=== PATIENT | male | born 1950 | race Caucasian/White ===

== ENCOUNTER 2017-04-12 06:57 | Day surgery (SDC) | payer MEDICARE, OTHER ==
[~2017-04-12 06:57] MED LIST: CIPROFLOXACIN HCL 0.0015 GM, PHENYLEPHRINE HCL 0.0125 GM, KETOROLAC TROMETHAMINE 0.0006... MC ONE
[2017-04-12] MEDS ORDERED: DICLOFENAC SODIUM 2.5 ML DROPS OPTH ONE (14:35)
[2017-04-12] MEDS ORDERED: NEOMYCIN/POLY./DEXAM OPTH OINT OPTH ONE (14:35)
[2017-04-12] MEDS ORDERED: MIDAZOLAM HCL 2MG/2ML VIAL IV ONE (14:35)
[2017-04-12] MEDS ORDERED: PREDNISOLONE ACETATE 1% OPTH 10ML BOTTLE OPTH ONE (14:35)
[2017-04-12] MEDS ORDERED: LIDOCAINE 2% MDV (20MG/ML) 20ML VIAL IV ONE ×2 (14:35)
[2017-04-12] MEDS ORDERED: PROPOFOL 10 MG/ML VIAL IV ONE (14:35)
[2017-04-12] MEDS ORDERED: TOBRAMYCIN 0.3% OPTH DROP 5 ML BTL OPTH ONE (14:35)
[2017-04-12] MEDS ORDERED: EPINEPHRINE 1 MG/ML AMPUL SQ ONE (14:35)
[2017-04-12] MEDS ORDERED: TETRACAINE HCL 0.5% 15 ML OPTH BTL OPTH ONE (14:35)
--- NOTE | 2017-04-13 10:08 | OP NOTE CHAMES ---
DATE OF PROCEDURE: 04/12/17 PREOPERATIVE DIAGNOSIS: Nuclear sclerotic cataract, left eye. POSTOPERATIVE DIAGNOSIS: Nuclear sclerotic cataract, left eye. OPERATION: Phacoemulsification of cataractous lens with implantation of intraocular lens. LENS IMPLANT USED: Model PCB00 + 22.5 diopters. COMPLICATIONS: None. PROCEDURE IN DETAIL: Following a retrobulbar and facial block, the patient was prepped and draped in the usual fashion for eye surgery. A lid speculum was placed in the left eye after which a 2.4 mm tunnel wound was placed at the temporal limbus and dissected into clear cornea. A paracentesis was placed at 2 oclock hours to the left and right of the initial incision and the chamber deepened with Viscoelastic. The keratome was then used to enter the anterior chamber after which the continuous circular capsulorrhexis was accomplished without difficulty using a bent needle and a Utrata forceps. Hydrodissection and hydrodelineation of the lens was performed after which the nucleus of the lens was removed using the Phaco handpiece in the [id number] technique. The residual cortical material was irrigated and aspirated from the eye after which the bag and chamber were re-examined. The bag was re-inflated with Viscoelastic and the intraocular lens injected into the capsular bag where it centered well. The Viscoelastic was then copiously irrigated and aspirated from the eye after which the temporal tunnel wound and paracentesis were hydrated and the wounds were examined. They were noted to be watertight. The lid speculum was removed from the eye and the eye patched and shielded. The patient was transferred to the recovery room in satisfactory condition and given an appointment to be reexamined in the clinic later today or as directed by Dr. Lovett. Moris Lovett M.D. Date & Time JOB NUMBER: [id number] MTDD
== END 2017-04-12 09:30 | disposition home or self-care (01) ==
LOC: SUR 06:57
PROVIDERS: ATTEND Ophthalmology
DX: H25.12 Age-related nuclear cataract, left eye (principal); E11.9 Type 2 diabetes mellitus without complications; Z79.84 Long term (current) use of oral hypoglycemic drugs; E78.00 Pure hypercholesterolemia, unspecified; I10 Essential (primary) hypertension
CPT/HCPCS: 66984; 00142; 36416; 82948; J0278; J0171

== ENCOUNTER 2017-05-14 07:21 | Day surgery (SDC) | payer MEDICARE, OTHER ==
[2017-05-14] MEDS ORDERED: LIDOCAINE 2% MDV (20MG/ML) 20ML VIAL IV ONE (14:00)
[2017-05-14] MEDS ORDERED: PROPOFOL 10 MG/ML VIAL IV ONE (14:00)
[2017-05-14] MEDS ORDERED: MIDAZOLAM HCL 2MG/2ML VIAL IV ONE (14:00)
--- NOTE | 2017-05-15 15:10 | Operative Note ---
DATE OF SURGERY: 05/14/2017 Surgeon: Jose M Clarke DO PREOPERATIVE DIAGNOSIS: History of colorectal cancer. POSTOPERATIVE DIAGNOSIS: History of colorectal cancer. OPERATION: Colonoscopy with polypectomy. Indication: The patient is a 58-year-old male who had a resection back in 2011. He comes in for followup colonoscopy. Risks, benefits, and alternatives were discussed. Risks include bleeding, infection, missed lesions. He understood this fully. Thereafter, consent signed, questions answered. PROCEDURE: The patient was taken to the endoscopy suite and placed in a supine position. Rotated into left lateral position. Propofol anesthesia was titrated to effect. At this time, digital rectal exam was done and showed no internal masses. At this time, a well-lubricated PCF 180-AL colonoscope was inserted into the patient's rectum and advanced to the level of the anastomosis on his left side. This was advanced through the anastomosis up the descending, along the transverse, down the ascending colon to the cecum. Once the cecum was reached, it was identified by the appendiceal orifice and the ileocecal valve. Upon withdrawal, there was a small polypoid lesion basically at the level of the hepatic flexure and proximal transverse colon. This was removed completely with cold jumbo forceps. Completely retrieved and hemostasis was noted. The scope was withdrawn inspecting all mucosal surface areas. He had normal folds and distensibility seen. The rest of the exam was normal. It was then retroflexion maneuver was done in the rectum, revealed no internal masses. At this time, the scope was straightened, the gases evacuated. The scope was fully removed. FINDINGS AT THE TIME OF COLONOSCOPY: 1. Hepatic flexure polyp. 2. Status post sigmoid resection. I recommend repeating this in 5 years or sooner if any problems arise. CC: PEGGY ANTHONY MD, FACP [facility]
== END 2017-05-14 09:07 | disposition home or self-care (01) ==
LOC: HOP 07:21
PROVIDERS: ATTEND Surgery
DX: Z85.038 Personal history of other malignant neoplasm of large intestine (principal); D12.3 Benign neoplasm of transverse colon; E11.9 Type 2 diabetes mellitus without complications; Z79.84 Long term (current) use of oral hypoglycemic drugs; I10 Essential (primary) hypertension; E78.00 Pure hypercholesterolemia, unspecified